=== PATIENT | female | born 1995 | race American Indian/Alaskan Native ===

== ENCOUNTER 2020-07-31 19:52 | Emergency (ER) | payer SELFPAY ==
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
[2020-07-31] MEDS ORDERED: ACETAMINOPHEN 325 MG TAB PO STA (22:47)
[2020-07-31 23:11] LABS: HCG Qualitative,Urine Negative (Negative)
[2020-07-31 23:14] LABS: Bacteria,Urine 1+ /HPF (Negative); Bilirubin,Urine NEG (Negative); Blood,Urine NEG (Negative); Color,Urine Colorless (Yellow); Mucus,Urine FEW /HPF; Protein,Urine <15 mg/dL mg/dL (Negative); Urobilinogen,Urine < 2.0 mg/dL (<2.0)
[2020-07-31 23:45] VITALS: BP 137/72
== END 2020-07-31 23:43 | disposition home or self-care (01) ==
LOC: ED 19:52
DX: M54.2 Cervicalgia (principal); Z32.02 Encounter for pregnancy test, result negative; Z79.899 Other long term (current) drug therapy; V49.49XA Driver injured in collision with other motor vehicles in traffic accident, initial encounter; Y93.89 Activity, other specified; Y92.488 Other paved roadways as the place of occurrence of the external cause; Y99.8 Other external cause status
CPT/HCPCS: 70450; 72125; 81001; 81025